=== PATIENT | female | born 1975 | race Hispanic/Latino ===

== ENCOUNTER 2018-05-09 08:01 | Day surgery (SDC) | payer OTHER ==
[2018-05-09] MEDS ORDERED: XYLOCAINE MPF 2% ONE (09:00)
[2018-05-09] MEDS ORDERED: NACL 0.9% 1000 ML 1,000 ML IV SCH (09:00)
[2018-05-09] MEDS ORDERED: WATER FOR IRRIG STERILE IR ONE (09:05)
[2018-05-09] MEDS ORDERED: DIPRIVAN 10 MG/ML IV ONE ×2 (09:07→09:52)
[2018-05-09] MEDS ORDERED: VERSED ONE (09:08)
--- NOTE | 2018-05-09 09:41 | History and Physical Report ---
HISTORY OF PRESENT ILLNESS: A 42-year-old white female who has an underlying history of psoriatic arthritis, previously has been on Remicade and has since come off it. She had blood work done, which shows that she is EMILEE positive. Also, noted to be P-ANCA positive. She had a CT scan done in the past which she had shown presence of fatty liver and some incidental pancreatic cyst. She is otherwise symptomatically doing well except for GERD symptoms for which she has gone to an ENT physician. She has been advised to have an EGD and a colonoscopy done. EGD is to assess for possible eosinophilic esophagitis and colonoscopy for microscopic colitis. She had a homocysteine level done, which is normal, does have a slightly elevated liver enzymes secondary to her fatty liver. ALLERGIES: Has a history of allergies to SULFA DRUGS. MEDICATIONS: She is on Zoloft, levothyroxine, buspirone, omeprazole. SOCIAL HISTORY: Denies history of smoking or alcohol use. She has had her flu shots and incidental cardiac issues include some mitral valve prolapse. PHYSICAL EXAMINATION: VITAL SIGNS: She is afebrile, blood pressure 140/70, pulse is 87, height is 5 feet 7 inches, weight is 153 pounds. HEENT: Shows no JVD. LUNGS: Show reduced breath sounds. CARDIOVASCULAR: Normal. ABDOMEN: Soft, bowel sounds present. There is some epigastric tenderness and some retrosternal tenderness. EXTREMITIES: No pedal edema. NEUROLOGIC: She is alert and oriented. IMPRESSION: History of fatty liver, possible eosinophilic esophagitis, gastritis, possible microscopic colitis, psoriatic arthritis, atypical chest pain, incidental pancreatic cyst and abdominal pain. PLAN: Treat the patient with PPI and to do EGD and colonoscopy at [facility] on 05/09/2018. JOB# [id number] RUDY/REMY JAMES
--- NOTE | 2018-05-09 10:04 | Procedure Note ---
Date of procedure: 05/09/18 Pre-op diagnosis: GERD/ Abdominal Pain Post-op diagnosis: other (Mild,Distal Esophagitis/Gastritis/R/O Eosinophilic Esophagitis/ R/O Celiac Disease/ R/o Microscopic Colitis/ R/o Ileitis/ Minor, Internal Hemorrhoid) [place] [facility] [place]: TAL CAPONE Estimated blood loss: minimal Pathology: list Specimen disposition: to lab Condition: stable Disposition: same day (Esophagitis/ Gastritis/ R/O Eosinophilic Esophagitis/ R/ O Celiac Disease/ R/O Microscopic Colitis/ R/O Ileitis/ Minor,Internal Hemorrhoid)
--- NOTE | 2018-05-09 10:14 | Anesthesia Day of Surgery ---
Anesthesia Day of Surgery - Day of Surgery Patient Examined: Yes Patient H&P Reviewed: Yes Patient is NPO: Yes Beta Blockers: No
--- NOTE | 2018-05-09 10:15 | Anesthesia Consultation ---
Anesthesia Consult and Med Hx - Airway Anesthetic Teeth Evaluation: Good ROM Head & Neck: Adequate Mental/Hyoid Distance: Adequate Mallampati Class: Class II Intubation Access Assessment: Probably Good - Pulmonary Exam CTA: Yes - Pre-Operative Health Status ASA Pre-Surgery Classification: ASA2 Proposed Anesthetic Plan: MAC - Endocrine Hx Liver Disease: Yes (MARTINEZ) Hx Hypothyroidism: Yes
[2018-05-09 10:29] VITALS: BP 103/46
--- NOTE | 2018-05-09 10:52 | Operative Report ---
PROCEDURE: EGD with biopsy. INDICATIONS: A 42-year-old white female with underlying history of psoriatic arthritis, who lately has been having GERD symptoms. EGD was done to assess for any significant upper GI pathology. Procedure was done after getting informed consent with MAC anesthesia; Nurse Ana Rosa Koroma the GI lab. coordinator was in the room during the whole entirety of this procedure. Instrument was passed through the hypopharynx into the esophagus, which showed some mild distal esophagitis. Stomach did not show a hiatal hernia on the retroverted view. There was some mild gastritis noted. The pylorus was patent. The duodenum in the first and second portion appeared normal. Biopsy was done from the duodenum, second part to rule out for possible celiac disease. Additional biopsy was done from the gastric antrum, the angularis, the gastric body to rule out for H. pylori and biopsy was also done from the mid esophagus to rule out eosinophilic esophagitis. There was minimal bleeding from the biopsy sites. No complications associated with the procedure. ASSESSMENT: Gastroesophageal reflux disease symptoms, mild distal esophagitis, rule out eosinophilic esophagitis, gastritis. No peptic ulcer disease noted. No hiatal hernia noted. Patent pylorus. Rule out celiac disease. PLAN: Is to treat the patient with proton pump inhibitor, have the patient to avoid aspirin and aspirin-related products for the next few days. Follow up in the office in about a 1-2 weeks' time. A colonoscopy will also be done for further assessment for the abdominal pain and to rule out for any associated microscopic colitis, again Nurse Ana Rosa Koroma, the Gastrointestinal slab depiler operator was in the endoscopy room during the entirety of this procedure. JOB# [id number] RUDY/REMY JAMES
--- NOTE | 2018-05-09 10:56 | Operative Report ---
PROCEDURE: Colonoscopy. INDICATIONS: This is a 42-year-old white female who has an underlying history of psoriatic arthritis and had previously been on Remicade, also has associated fatty liver, has been having some GERD symptoms and associated abdominal pain. EGD had shown presence of some mild distal esophagitis and biopsy was done to rule out eosinophilic esophagitis, celiac disease and also to assess for H. pylori and atrophic gastritis. A colonoscopy is being done for any significant lower GI pathology, namely to rule out for any associated microscopic colitis because of her underlying history of psoriatic arthritis and also being positive for p-ANCA. Procedure was done after getting informed consent with MAC anesthesia. Initial rectal exam was unremarkable. Nurse, Myrna Barrett, was in the room during the entirety of this procedure. DESCRIPTION OF PROCEDURE: The instrument was passed through the rectum on to the cecum, which was identified by the ileocecal valve and the appendiceal orifice. Visualization was fair to good. The terminal ileum was intubated, it showed normal mucosa. Biopsy was done to rule out for possible ileitis. Cecum, ascending colon, transverse colon, descending colon, and sigmoid likewise showed normal mucosa. Random biopsies were done to rule out for possible microscopic colitis. There was minor internal hemorrhoid noted on the retroverted view. There was minimal bleeding from the biopsy sites. No complications associated with the procedure. ASSESSMENT: Abdominal pain, rule out microscopic colitis, rule out ileitis. The patient has a history of psoriatic arthritis and is positive for p-ANCA. There was minimal bleeding from the biopsy sites. No complications associated with the procedure. The patient will be asked to continue with her present medications of PPI as well as encouraged her to take probiotics and Bentyl if needed for the pain and avoid aspirin and aspirin-related products for the next few days and follow up in the office in 1-2 weeks' time. Again, nurse, Myrna Barrett, was in the room during the entirety of this procedure. JOB# [id number] RUDY/REMY
== END 2018-05-09 08:02 | disposition home or self-care (01) ==
LOC: GIO 08:01
DX: K52.89 Other specified noninfective gastroenteritis and colitis (principal); K29.90 Gastroduodenitis, unspecified, without bleeding; K21.0 Gastro-esophageal reflux disease with esophagitis; K64.8 Other hemorrhoids; E78.00 Pure hypercholesterolemia, unspecified; M19.90 Unspecified osteoarthritis, unspecified site; E03.9 Hypothyroidism, unspecified; Z88.2 Allergy status to sulfonamides; Z87.891 Personal history of nicotine dependence; Z98.890 Other specified postprocedural states
CPT/HCPCS: 43239; 45380; 81025; 88305; 88342; J2250; J2704; J7030